=== PATIENT | male | born 1940 | race Caucasian/White ===

== ENCOUNTER 2017-05-24 07:35 | Outpatient (CLI) | payer OTHER, MEDICARE ==
[2017-05-24 08:07] LABS: #Basophils 0.1 thou/uL (0.0-0.2); #Eosinphils 0.2 thou/uL (0.0-0.7); #Lymphocytes 1.9 thou/uL (1.20-3.40); #Monocytes 0.6 thou/uL (0.11-0.59); %Lymphocytes 28.4 % (21.0-51.0); %Monocytes 8.4 % (0.0-10.0); %Neutrophils 58.2 % (42.0-75.0); Hemoglobin 17.5 g/dL (14.0-18.0); Mean Corpuscular HGB CONC 33.6 g/dL (32.0-36.0); Mean Corpuscular Hemoglobin 32.3 pg (27.0-31.0); Mean Platelet Volume 9.2 fL (7.4-10.4); Platelet Count 282 thou/uL (130-400); RBC Distribution Width 12.6 % (11.5-14.5); Red Blood Cell (RBC) Count 5.43 mill/uL (4.70-6.10); White Blood Cell (WBC) Count 6.8 thou/uL (4.8-10.8)
[2017-05-24 08:15] LABS: Hemoglobin A1c 6.4 % (4.0-6.0)
[2017-05-24 08:20] LABS: ALT (SGPT) 25 U/L (8-55); AST (SGOT) 24 U/L (5-34); Alkaline Phosphatase 77 U/L (40-150); Anion Gap 17 mmol/L (10-20); BUN (Urea Nitrogen) 15 mg/dL (8.4-25.7); Bilirubin, Total 0.5 mg/dL (0.2-1.2); Calc. Creatinine Clearance 0 mL/min (70-130); Calcium 9.4 mg/dL (7.8-10.44); Carbon Dioxide 22 mmol/L (23-31); Cardiac Risk 4.4 (Less than 4.5); Chloride 103 mmol/L (98-107); Cholesterol 166 mg/dl (< 200 Desired); Estimated GFR-MDRD 69; Globulin 2.9 g/dL (2.4-3.5); Glucose 128 mg/dL (83-110); HDL Cholesterol 38 mg/dL (>60 Neg Risk); LDL Cholesterol, Calculated 99 mg/dL; Protein, Total 6.9 g/dL (5.8-8.1); Sodium 138 mmol/L (136-145); Triglycerides 143 mg/dL (Less than 150)
[2017-05-24 11:19] LABS: Bacteria/HPF None Seen HPF (None Seen); Bilirubin Negative (Negative); Blood, Urine Negative (Negative); Clarity Clear (Clear); Glucose, Urine (Dipstick) 500 mg/dL (Negative); Leukocyte Negative (Negative); Nitrite Negative (Negative); Protein, Urine (Dipstick) Negative (Neg-Trace); RBC/HPF None Seen HPF (0-3); Specific Gravity, Urine 1.025 (1.005-1.030); Squamous Epithelial 0-3 HPF (0-3); Urobilinogen 0.2 mg/dL (0.2-1.0); WBC/HPF 0-3 HPF (0-3)
[2017-05-24 17:28] LABS: Creatinine, Urine 258.51 mg/dL (63-166); Microalbumin Urine 1.1 mg/dL (0.5-50.0); Microalbumin/Creat Ratio 4.3 mg/g (Less than 30)
== END 2017-05-24 07:36 | disposition home or self-care (01) ==
LOC: MADLAB 07:35
PROVIDERS: ATTEND Family Medicine
DX: Z00.00 Encounter for general adult medical examination without abnormal findings (principal); E11.9 Type 2 diabetes mellitus without complications
CPT/HCPCS: 36415; 80053; 80061; 81001; 82043; 83036; 85025

== ENCOUNTER 2018-08-30 23:53 | Emergency (ER) | payer OTHER, MEDICARE ==
--- NOTE | 2018-08-31 09:58 | RAD ---
RIGHT HIP 2 VIEWS: Date: 08/31/18 HISTORY: 78-year-old male with history of right hip injury. FINDINGS: Marked arthrosis changes right hip joint. No acute fracture or dislocation. 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 POS: JAG[facility]
--- NOTE | 2018-08-31 09:59 | RAD ---
LEFT HIP 2 VIEWS: Date: 08/31/18 HISTORY: 78-year-old male with history of left hip injury. FINDINGS: Degenerative changes are noted of the left hip, including some lesser trochanter enthesophytic change . No fracture or dislocation. IMPRESSION: Degenerative changes without fracture or dislocation. POS: JAGDEEP
--- NOTE | 2018-08-31 09:59 | RAD ---
RIGHT FEMUR 2 VIEWS: Date: 08/31/18 HISTORY: 78-year-old male with right femur injury. FINDINGS: Degenerative changes are noted of the hip joint and knee joint. No acute fracture, dislocation, or ot her acute process. IMPRESSION: Degenerative changes without fracture or dislocation. POS: JAGDEEP
== END 2018-08-31 00:32 | disposition home or self-care (01) ==
LOC: MADERS 23:53
DX: S76.012A Strain of muscle, fascia and tendon of left hip, initial encounter (principal); S76.011A Strain of muscle, fascia and tendon of right hip, initial encounter; I48.91 Unspecified atrial fibrillation; I10 Essential (primary) hypertension; W01.0XXA Fall on same level from slipping, tripping and stumbling without subsequent striking against object, initial encounter; Y92.239 Unspecified place in hospital as the place of occurrence of the external cause

== ENCOUNTER 2023-07-04 14:43 | Emergency (ER) | payer MEDICARE | END 2023-07-04 17:00 | disposition home or self-care (01) | LOC: MADERS 14:43 | DX: S09.90XA Unspecified injury of head, initial encounter (principal); S20.211A Contusion of right front wall of thorax, initial encounter; G95.29 Other cord compression; M50.31 Other cervical disc degeneration, high cervical region; I48.91 Unspecified atrial fibrillation; I10 Essential (primary) hypertension; W18.30XA Fall on same level, unspecified, initial encounter; Z79.82 Long term (current) use of aspirin; Z79.01 Long term (current) use of anticoagulants; Z79.899 Other long term (current) drug therapy | CPT/HCPCS: 70450; 72125; 93005 ==

== ENCOUNTER 2023-07-19 13:46 | Emergency (ER) | payer MEDICARE ==
[2023-07-19 14:29] LABS: Bilirubin Small (Negative); Blood, Urine Large (Negative); Clarity Cloudy (Clear); Glucose, Urine (Dipstick) Negative (Negative); Ketone, Urine Trace mg/dL (Negative); Leukocyte Small (Negative); Nitrite Positive (Negative); Protein, Urine (Dipstick) > or equal to 300 mg/dL (Neg-Trace)
[2023-07-19 14:31] LABS: Specific Gravity, Urine 1.027 (1.002-1.036)
[2023-07-19 14:43] LABS: Bacteria/HPF 1+ HPF (None Seen); CAUTI Indications for Culture Acute Hematuria; RBC/HPF Greater than 50 HPF (0-3); WBC/HPF Greater Than 50 HPF (0-3)
[2023-07-19 14:45] LABS: Urine Culture Reflex Yes Yes
[2023-07-19] MEDS ORDERED: Ciprofloxacin 500 MG TAB ONE (15:56)
[2023-07-19] MEDS ORDERED: Phenazopyridine HCl 95 MG TAB ONE (15:58)
== END 2023-07-19 16:00 | disposition home or self-care (01) ==
LOC: MADERS 13:46
DX: N30.91 Cystitis, unspecified with hematuria (principal); I10 Essential (primary) hypertension; Z79.82 Long term (current) use of aspirin; Z79.899 Other long term (current) drug therapy
CPT/HCPCS: 81001; 87077; 87086; 87186; 99283

== ENCOUNTER 2025-08-03 14:15 | Inpatient (IN) | payer MEDICARE ==
[2025-08-03] MEDS: Ciprofloxacin 500 MG TAB PO SCH (20:14)
[2025-08-03] MEDS: Acetaminophen 325 MG TAB PO PRN (20:14)
[2025-08-04 05:35] LABS: #Basophils 0.1 thou/uL (0.0-0.2); #Eosinophils 0.2 thou/uL (0.0-0.7); #Lymphocytes 1.7 thou/uL (1.20-3.40); #Monocytes 0.6 thou/uL (0.11-0.59); #Neutrophils 4.0 thou/uL (1.40-6.50); %Basophils 1.7 % (0.0-1.0); %Eosinophils 3.8 % (0.0-10.0); %Lymphocytes 25.0 % (21.0-51.0); %Monocytes 9.4 % (0.0-10.0); %Neutrophils 60.1 % (42.0-75.0); Hematocrit 48.4 % (42.0-52.0); Hemoglobin 16.0 g/dL (14.0-18.0); Mean Corpuscular Hemoglobin 31.5 pg (27.0-31.0); Mean Corpuscular Volume 95.8 fl (78.0-98.0); Platelet Count 251 10x3/uL (130-400); Red Blood Cell (RBC) Count 5.06 mill/uL (4.70-6.10); White Blood Cell (WBC) Count 6.6 10x3/uL (4.8-10.8)
[2025-08-04 05:47] LABS: ALT (SGPT) 22 U/L (Less than 45); AST (SGOT) 30 U/L (11-34); Albumin 3.1 g/dL (3.1-4.5); Alkaline Phosphatase 73 U/L (40-110); Anion Gap 14 mmol/L (10-20); BUN (Urea Nitrogen) 18 mg/dL (8.4-25.7); Bilirubin, Total 1.3 mg/dL (0.3-1.2); Calc. Creatinine Clearance 78 mL/min (70-130); Calcium 8.6 mg/dL (7.8-10.44); Carbon Dioxide 22 mmol/L (23-31); Chloride 106 mmol/L (98-107); Globulin 3.0 g/dL (2.4-3.5); Glucose 144 mg/dL (83-110); Potassium 3.9 mmol/L (3.5-5.1); Sodium 138 mmol/L (136-145)
[2025-08-04] MEDS: Losartan 50 MG TAB PO SCH (08:18)
[2025-08-04] MEDS: Metoprolol Succinate XL 50 MG ER.TAB PO SCH (08:18)
[2025-08-04 10:40] VITALS: BMI 29.9
[2025-08-14] MEDS: Losartan 50 MG TAB PO SCH (20:48)
[2025-08-15] MEDS: Emollient 15 oz bottle 450 ML, Triamcinolone Acetonide 200 MG TOP PRN (20:56)
[2025-08-16 05:22] VITALS: BMI 29.0
[2025-08-16 18:03] LABS: Glucose, Urine (Dipstick) Negative (Negative); Leukocyte Negative (Negative); Protein, Urine (Dipstick) Negative (Neg-Trace); Specific Gravity, Urine 1.025 (1.005-1.030)
[2025-08-16 18:14] LABS: Bacteria/HPF Rare-Few HPF (None Seen); CAUTI Indications for Culture Alt mental st,lethar; RBC/HPF 0-3 HPF (0-3); WBC/HPF 0-3 HPF (0-3)
[2025-08-16 18:15] LABS: Urine Culture Reflex No No
[2025-08-16 18:49] LABS: ALT (SGPT) 42 U/L (Less than 45); AST (SGOT) 32 U/L (11-34); Albumin 3.8 g/dL (3.1-4.5); Alkaline Phosphatase 113 U/L (40-110); Anion Gap 15 mmol/L (10-20); BUN (Urea Nitrogen) 22 mg/dL (8.4-25.7); Bilirubin, Total 0.9 mg/dL (0.3-1.2); Calc. Creatinine Clearance 56 mL/min (70-130); Calcium 9.5 mg/dL (7.8-10.44); Carbon Dioxide 27 mmol/L (23-31); Chloride 100 mmol/L (98-107); Globulin 3.1 g/dL (2.4-3.5); Glucose 169 mg/dL (83-110); Potassium 4.2 mmol/L (3.5-5.1); Sodium 138 mmol/L (136-145)
[2025-08-16 18:50] LABS: Troponin I 0.011 ng/mL (< 0.028)
[2025-08-16 18:55] LABS: Hematocrit 48.9 % (42.0-52.0); Hemoglobin 15.9 g/dL (14.0-18.0); MDiff Complete? YES; Mean Corpuscular Hemoglobin 31.1 pg (27.0-31.0); Mean Corpuscular Volume 95.3 fl (78.0-98.0); Platelet Adequacy Comment Appears Adequate; Platelet Count 269 10x3/uL (130-400); Red Blood Cell (RBC) Count 5.13 mill/uL (4.70-6.10); White Blood Cell (WBC) Count 8.1 10x3/uL (4.8-10.8)
[2025-08-16 19:06] VITALS: TEMP 97.9
[2025-08-16 19:07] VITALS: BP 128/67
== END 2025-08-16 20:45 | disposition short-term general hospital (02) | DRG 83 ==
LOC: MADMS 14:15
PROVIDERS: ADMIT Family Medicine; ATTEND Family Medicine
DX: S06.5XAA Traumatic subdural hemorrhage with loss of consciousness status unknown, initial encounter (principal); F05 Delirium due to known physiological condition; N39.0 Urinary tract infection, site not specified; R47.01 Aphasia; R53.81 Other malaise; I48.91 Unspecified atrial fibrillation; I10 Essential (primary) hypertension; E78.5 Hyperlipidemia, unspecified; E11.9 Type 2 diabetes mellitus without complications; I95.9 Hypotension, unspecified; R26.89 Other abnormalities of gait and mobility; W19.XXXA Unspecified fall, initial encounter; Z79.01 Long term (current) use of anticoagulants; Z79.899 Other long term (current) drug therapy; Z79.84 Long term (current) use of oral hypoglycemic drugs; Z79.82 Long term (current) use of aspirin; Z87.891 Personal history of nicotine dependence
CPT/HCPCS: 36415; 70450; 80053; 81001; 84484; 85025; 87086

== ENCOUNTER 2025-08-24 13:53 | Inpatient (IN) | payer MEDICARE ==
[2025-08-24 16:35] VITALS: BMI 31.3
[2025-08-24] MEDS ORDERED: Dextrose 50% Abboject 50 ML SYRINGE SLOW IVP PRN (16:36)
[2025-08-24] MEDS ORDERED: Acetaminophen/Codeine 30-300mg Tablet PO PRN (16:36)
[2025-08-24] MEDS ORDERED: Glucagon 1 MG/ML KIT IM PRN (16:36)
[2025-08-24] MEDS: levETIRAcetam 500 MG TAB PO SCH (20:30)
[2025-08-25] MEDS: Benzocaine/Menthol 1 LOZ LOZ PO PRN (04:14)
[2025-08-25] MEDS: Pantoprazole 40 MG DR.TAB PO SCH (08:55)
[2025-08-25] MEDS: FLU (Fluad Triv) 25-26 (65UP)PF 45 MCG/0.5 ML Syringe IM ONE (09:07)
[2025-08-25 13:29] LABS: #Basophils 0.1 thou/uL (0.0-0.2); #Eosinophils 0.1 thou/uL (0.0-0.7); #Lymphocytes 1.1 thou/uL (1.20-3.40); #Monocytes 0.5 thou/uL (0.11-0.59); #Neutrophils 5.8 thou/uL (1.40-6.50); %Basophils 1.1 % (0.0-1.0); %Eosinophils 1.5 % (0.0-10.0); %Lymphocytes 14.6 % (21.0-51.0); %Monocytes 7.0 % (0.0-10.0); %Neutrophils 75.9 % (42.0-75.0); Hematocrit 46.1 % (42.0-52.0); Hemoglobin 15.0 g/dL (14.0-18.0); Mean Corpuscular Hemoglobin 30.9 pg (27.0-31.0); Mean Corpuscular Volume 94.8 fl (78.0-98.0); Platelet Count 194 10x3/uL (130-400); Red Blood Cell (RBC) Count 4.86 mill/uL (4.70-6.10); White Blood Cell (WBC) Count 7.6 10x3/uL (4.8-10.8)
[2025-08-25 13:34] LABS: ALT (SGPT) 20 U/L (Less than 45); AST (SGOT) 22 U/L (11-34); Albumin 3.2 g/dL (3.1-4.5); Alkaline Phosphatase 102 U/L (40-110); Anion Gap 14 mmol/L (10-20); BUN (Urea Nitrogen) 11 mg/dL (8.4-25.7); Bilirubin, Total 1.5 mg/dL (0.3-1.2); Calc. Creatinine Clearance 85 mL/min (70-130); Calcium 8.8 mg/dL (7.8-10.44); Carbon Dioxide 24 mmol/L (23-31); Chloride 103 mmol/L (98-107); Globulin 3.2 g/dL (2.4-3.5); Glucose 228 mg/dL (83-110); Potassium 3.6 mmol/L (3.5-5.1); Sodium 137 mmol/L (136-145)
[2025-08-25] MEDS: Acetaminophen 325 MG TAB PO PRN (20:08)
[2025-09-01 12:38] VITALS: BMI 30.2
[2025-09-03 06:55] LABS: Hematocrit 45.9 % (42.0-52.0); Hemoglobin 14.8 g/dL (14.0-18.0); Mean Corpuscular Hemoglobin 30.7 pg (27.0-31.0); Mean Corpuscular Volume 95.1 fl (78.0-98.0); Platelet Count 243 10x3/uL (130-400); Red Blood Cell (RBC) Count 4.82 mill/uL (4.70-6.10); White Blood Cell (WBC) Count 7.6 10x3/uL (4.8-10.8)
[2025-09-03 07:04] LABS: ALT (SGPT) 23 U/L (Less than 45); AST (SGOT) 20 U/L (11-34); Albumin 3.5 g/dL (3.1-4.5); Alkaline Phosphatase 96 U/L (40-110); Anion Gap 14 mmol/L (10-20); BUN (Urea Nitrogen) 12 mg/dL (8.4-25.7); Bilirubin, Total 1.1 mg/dL (0.3-1.2); Calc. Creatinine Clearance 79 mL/min (70-130); Calcium 8.9 mg/dL (7.8-10.44); Carbon Dioxide 24 mmol/L (23-31); Chloride 105 mmol/L (98-107); Globulin 2.9 g/dL (2.4-3.5); Glucose 136 mg/dL (83-110); Potassium 4.0 mmol/L (3.5-5.1); Sodium 139 mmol/L (136-145)
[2025-09-03 07:10] LABS: MDiff Complete? YES; Manual Diff?? YES
[2025-09-03 07:11] LABS: Platelet Adequacy Comment Appears Adequate
[2025-09-03 07:27] VITALS: BP 147/86; TEMP 97.4
== END 2025-09-03 08:30 | disposition short-term general hospital (02) | DRG 945 ==
LOC: MADMS 15:15
PROVIDERS: ADMIT Family Medicine; ATTEND Family Medicine
PROC: F07Z5ZZ Bed Mobility Treatment (ICD-10-PCS; principal; 2025-08-24)
PROC: F08Z0ZZ Bathing/Showering Techniques Treatment (ICD-10-PCS; 2025-08-24)
DX: R53.81 Other malaise (principal); S06.5XAA Traumatic subdural hemorrhage with loss of consciousness status unknown, initial encounter; M47.12 Other spondylosis with myelopathy, cervical region; I10 Essential (primary) hypertension; E78.5 Hyperlipidemia, unspecified; E11.9 Type 2 diabetes mellitus without complications; I48.91 Unspecified atrial fibrillation; Z79.899 Other long term (current) drug therapy; Z98.890 Other specified postprocedural states; Z87.891 Personal history of nicotine dependence; R26.89 Other abnormalities of gait and mobility; W18.30XA Fall on same level, unspecified, initial encounter
CPT/HCPCS: 36415; 36416; 70450; 80053; 80177; 85025; 90653; 94640

== ENCOUNTER 2025-09-07 19:56 | Inpatient (IN) | payer MEDICARE ==
[2025-09-07 23:38] VITALS: BMI 28.1
[2025-09-08] MEDS ORDERED: Dextrose 50% Abboject 50 ML SYRINGE SLOW IVP PRN ×2 (05:18→05:22)
[2025-09-08] MEDS ORDERED: Acetaminophen/Codeine 30-300mg Tablet PO PRN (05:18)
[2025-09-08] MEDS ORDERED: Glucagon 1 MG/ML KIT IM PRN (05:22)
[2025-09-08] MEDS: Pantoprazole 40 MG DR.TAB PO SCH (08:46)
[2025-09-08] MEDS: levETIRAcetam 500 MG TAB PO SCH (08:46)
[2025-09-08] MEDS: Ipratropium Bromide 0.03% Nasal Inhaler 30 ml Bottle EA NARE SCH (08:47)
[2025-09-08] MEDS: Metoprolol Succinate XL 50 MG ER.TAB PO SCH (08:47)
[2025-09-09 05:13] LABS: Hematocrit 50.9 % (42.0-52.0); Hemoglobin 16.5 g/dL (14.0-18.0); MDiff Complete? YES; Mean Corpuscular Hemoglobin 30.4 pg (27.0-31.0); Mean Corpuscular Volume 93.6 fl (78.0-98.0); Platelet Count 200 10x3/uL (130-400); Red Blood Cell (RBC) Count 5.43 mill/uL (4.70-6.10); White Blood Cell (WBC) Count 9.8 10x3/uL (4.8-10.8)
[2025-09-09 05:29] LABS: ALT (SGPT) Less than 7 U/L (Less than 45); AST (SGOT) 17 U/L (11-34); Albumin 3.3 g/dL (3.1-4.5); Alkaline Phosphatase 103 U/L (40-110); Anion Gap 14 mmol/L (10-20); BUN (Urea Nitrogen) 16 mg/dL (8.4-25.7); Bilirubin, Total 1.7 mg/dL (0.3-1.2); Calc. Creatinine Clearance 90 mL/min (70-130); Calcium 9.2 mg/dL (7.8-10.44); Carbon Dioxide 23 mmol/L (23-31); Chloride 103 mmol/L (98-107); Globulin 3.3 g/dL (2.4-3.5); Glucose 154 mg/dL (83-110); Potassium 3.9 mmol/L (3.5-5.1); Sodium 136 mmol/L (136-145)
[2025-09-09 18:53] VITALS: BMI 28.0
[2025-09-10] MEDS: Acetaminophen 325 MG TAB PO PRN (03:04)
[2025-09-10] MEDS: Benzocaine/Menthol 1 LOZ LOZ PO PRN (03:05)
[2025-09-13] MEDS: Benzonatate 100 MG CAP PO PRN (01:54)
[2025-09-14 08:06] LABS: #Basophils 0.1 thou/uL (0.0-0.2); #Eosinophils 0.1 thou/uL (0.0-0.7); #Lymphocytes 1.7 thou/uL (1.20-3.40); #Monocytes 0.9 thou/uL (0.11-0.59); #Neutrophils 8.3 thou/uL (1.40-6.50); %Basophils 0.9 % (0.0-1.0); %Eosinophils 1.0 % (0.0-10.0); %Lymphocytes 15.0 % (21.0-51.0); %Monocytes 8.3 % (0.0-10.0); %Neutrophils 74.8 % (42.0-75.0); Hematocrit 53.1 % (42.0-52.0); Hemoglobin 16.6 g/dL (14.0-18.0); Mean Corpuscular Hemoglobin 29.7 pg (27.0-31.0); Mean Corpuscular Volume 95.2 fl (78.0-98.0); Platelet Count 202 10x3/uL (130-400); Red Blood Cell (RBC) Count 5.58 mill/uL (4.70-6.10); White Blood Cell (WBC) Count 11.1 10x3/uL (4.8-10.8)
[2025-09-14 08:22] LABS: ALT (SGPT) 35 U/L (Less than 45); AST (SGOT) 29 U/L (11-34); Albumin 3.5 g/dL (3.1-4.5); Alkaline Phosphatase 110 U/L (40-110); Anion Gap 18 mmol/L (10-20); BUN (Urea Nitrogen) 19 mg/dL (8.4-25.7); Bilirubin, Total 1.4 mg/dL (0.3-1.2); CK (CPK) 22 U/L (30-200); Calc. Creatinine Clearance 66 mL/min (70-130); Calcium 9.7 mg/dL (7.8-10.44); Carbon Dioxide 21 mmol/L (23-31); Chloride 105 mmol/L (98-107); Globulin 3.7 g/dL (2.4-3.5); Glucose 246 mg/dL (83-110); Potassium 4.0 mmol/L (3.5-5.1); Sodium 140 mmol/L (136-145)
[2025-09-14 08:28] LABS: Troponin I 0.020 ng/mL (< 0.028)
[2025-09-14] MEDS ORDERED: Iopamidol 370 76% 100 ML VIAL ONE (09:00)
[2025-09-14 09:39] LABS: CO2 Tension (PvCO2) 44.3 mmHg (42.0-51.0)
[2025-09-14 09:40] LABS: Bicarbonate (HCO3v) 24.5 mmol/L (22.0-28.0); Calcium, Ionized 1.22 mmol/L (1.15-1.33); Chloride 104 mmol/L (98-107); Hemoglobin - Calc 16.0 g/dL (14.0-18.0); Potassium 4.1 mmol/L (3.5-5.1); Sodium 136 mmol/L (138-145); T. Carbon Dioxide 25.8 mmol/L (22.0-28.0); vO2 Saturation-calc 91.6 % (60.0-85.0)
[2025-09-14 10:07] VITALS: TEMP 98.6
[2025-09-14 11:07] VITALS: BP 128/76
== END 2025-09-14 10:33 | disposition short-term general hospital (02) | DRG 945 ==
LOC: MADMS 22:46
PROVIDERS: ADMIT Family Medicine; ATTEND Family Medicine
PROC: F07Z5ZZ Bed Mobility Treatment (ICD-10-PCS; principal; 2025-09-08)
PROC: F08Z0ZZ Bathing/Showering Techniques Treatment (ICD-10-PCS; 2025-09-08)
DX: R53.81 Other malaise (principal); M47.12 Other spondylosis with myelopathy, cervical region; I10 Essential (primary) hypertension; E78.5 Hyperlipidemia, unspecified; E11.9 Type 2 diabetes mellitus without complications; I48.91 Unspecified atrial fibrillation; Z79.899 Other long term (current) drug therapy; Z91.81 History of falling; Z98.890 Other specified postprocedural states; Z87.891 Personal history of nicotine dependence; R26.89 Other abnormalities of gait and mobility; S06.5XAD Traumatic subdural hemorrhage with loss of consciousness status unknown, subsequent encounter
CPT/HCPCS: 36415; 36416; 70450; 71046; 71275; 80053; 80177; 82330; 82550; 82803; 83880; 84484; 85025; 85379; J1815; Q9967